=== PATIENT | female | born 1995 | race Caucasian/White ===

== ENCOUNTER 2016-09-01 20:31 | Emergency (ER) | payer OTHER ==
--- NOTE | 2016-09-01 20:54 | EDPHY ---
H & P Time Seen by Provider: 09/01/16 20:39 HPI/ROS: CHIEF COMPLAINT: Nausea diarrhea HISTORY OF PRESENT ILLNESS: This is a 21-year-old female presenting to the emergency department complaining of nausea and constant diarrhea since Sunday morning. Patient states her friends went out for a birthday celebration Sunday afternoon had an early dinner then went drinking alcohol woke up Sunday with diarrhea and nausea. Patient states she did attempt to eat on but increase in nausea no vomiting constant diarrhea no blood in her diarrhea. Patient states she just feels dehydrated because she really has anything or drinking anything, she did take some [place] night which which made her feel somewhat better, but still has not been drinking a lot of fluids and still has diarrhea. Denies any fever chills. Patient also states that [place], was told that it was high allergy bacteria. "I do not know if this is due to food poisoning or the bacteria in the [place]". Denies any chest pain shortness of breath REVIEW OF SYSTEMS: Constitutional: No fever, no chills. Eyes: No discharge. No blurred vision ENT: No sore throat. Cardiovascular: No chest pain, no palpitations. Respiratory: No cough, no shortness of breath. Gastrointestinal: Abdominal cramping. no vomiting. Nausea and diarrhea Genitourinary: No hematuria. Musculoskeletal: Lower back pain Skin: No rashes. Neurological: No headache. Smoking Status: Current some day smoker Physical Exam: General Appearance: Alert, no distress. Non ill nontoxic appearance Eyes: Pupils equal and round no pallor or injection. ENT, Mouth: Mucous membranes dry Respiratory: There are no retractions, lungs are clear to auscultation. Cardiovascular: Regular rate and rhythm. Gastrointestinal: Abdomen is soft and nontender, no masses, bowel sounds hyperactive Neurological: No focal deficits. Answering questions appropriately Skin: Warm and dry, no rashes. Musculoskeletal: Neck is supple nontender. Extremities: symmetrical, full range of motion. Psychiatric: Patient is oriented X 3, acting appropriately Constitutional: Initial Vital Signs Temperature (C) 37.2 C 09/01/16 20:34 Heart Rate 62 09/01/16 20:34 Respiratory Rate 16 09/01/16 20:34 Blood Pressure 139/87 H 09/01/16 20:34 O2 Sat (%) 98 09/01/16 20:34 O2 Delivery Mode Room Air Allergies/Adverse Reactions: No Known Allergies Allergy (Unverified 09/01/16 20:37) Home Medications: Medication Instructions Recorded NK [No Known Home Meds] 09/01/16 Medical Decision Making ED Course/Re-evaluation: Discussed ED plan of care: CBC, BMP, UA, IV fluids for dehydration 0: Patient re-evaluation, denies any nausea vomiting, tolerating p.o. at this time crackers and juice. Discussed all lab results with patient no acute findings 2210: Discharge home---> stable, discussed all discharge instructions the patient Differential Diagnosis: Other differential diagnosis considered but not limited to UTI, infectious diarrhea, sepsis and gastritis - Data Points Laboratory Results: Laboratory Results 09/01/16 21:00 09/01/16 21:00 Medications Given: Discontinued Medications Sodium Chloride (Ns) 1,000 mls @ 0 mls/hr IV ONCE ONE PRN Reason: Wide Open Stop: 09/01/16 20:57 Last Admin: 09/01/16 21:13 Dose: 1,000 mls Departure - Departure Disposition: Home, Routine, Self-Care Clinical Impression: Acute gastroenteritis Diarrhea Qualifiers: Diarrhea type: functional diarrhea Qualified Code(s): K59.1 - Functional diarrhea Condition: Good Instructions: Acute Diarrhea (ED) Additional Instructions: 1. Increase fluid intake. 2. You can take [id number] Imodium as directed to help with diarrhea. 3. I would recommend no drinking alcohol 4. Would recommend a bland diet for the next 24-48 hours , bananas, broth, Tea jello 5. If any worsening symptoms, such as: Fever increasing abdominal pain, unable to tolerate anything by mouth nausea vomiting, bloody stool return to the ER Referrals: SULEIMAN MCELROY [Other] - As per Instructions
[2016-09-01] MEDS ORDERED: NS 1,000 ML IV ONE (20:56)
[2016-09-01 21:26] LABS: ADD DIFF? NO; ADD MORPH? NO; ADD SCAN? NO; ATYPICAL LYMPHOCYTE FLAG 30 (0-99); FRAGMENT RBC FLAG 0 (0-99); HEMOGLOBIN 12.7 g/dL (12.6-16.3); LEFT SHIFT FLG 0 (0-99); LIPEMIA HEMOLYSIS FLAG 80 (0-99); MEAN CELL HEMOGLOBIN 31.8 pg (27.9-34.1); MEAN CELL HEMOGLOBIN CONCENTR. 33.4 g/dL (32.4-36.7); MEAN CELL VOLUME 95.2 fL (81.5-99.8); MEAN PLATELET VOLUME 10.1 fL (8.7-11.7); PLATELET CLUMPS FLAG 0 (0-99); PLATELET COUNT 282 10^3/uL (150-400); RED BLOOD CELL COUNT 3.99 10^6/uL (4.18-5.33); RED CELL DISTRIBUTION WIDTH 12.3 % (11.5-15.2)
[2016-09-01 21:31] LABS: ANION GAP 10 mEq/L (8-16); CALCIUM 9.9 mg/dL (8.5-10.4); CARBON DIOXIDE 24 mEq/l (22-31); CHLORIDE 105 mEq/L (97-110); CREATININE 0.8 mg/dL (0.6-1.0); GLOMERULAR FILTRATION RATE > 60; GLUCOSE 79 mg/dL (70-100); POTASSIUM 4.3 mEq/L (3.5-5.2); SODIUM 139 mEq/L (134-144)
[2016-09-01 21:51] LABS: COLOR YELLOW; LEUKOCYTE ESTERASE,URINE NEGATIVE (NEGATIVE); NITRITE,URINE NEGATIVE (NEGATIVE)
[2016-09-01 22:16] VITALS: BP 121/73; PULSE 54; RESP 14; TEMP 98.6; O2SAT 100
== END 2016-09-01 22:14 | disposition home or self-care (01) ==
DX: K52.9 Noninfective gastroenteritis and colitis, unspecified (principal); F17.200 Nicotine dependence, unspecified, uncomplicated